=== PATIENT | male | born 1980 | race Caucasian/White ===

== ENCOUNTER → 2021-08-29 | Outpatient (CLI) | payer OTHER ==
--- NOTE | 2021-08-29 10:58 | XR ---
EXAMINATION TYPE: XR lumbar spine 2 or 3V DATE OF EXAM: 08/29/2021 COMPARISON: None HISTORY: Low back pain TECHNIQUE: 3 view lumbar spine FINDINGS: There are 5 lumbar-type vertebral bodies. Pedicles are intact. Mild side bending towards th e left is present. Disc heights are preserved. Vertebral body heights are preserved. IMPRESSION: 1. Normal three-view lumbar spine
== END | disposition home or self-care (01) ==
LOC: RADXRMAIN 10:02
PROVIDERS: ATTEND Family Medicine
DX: M54.50 Low back pain, unspecified (principal)
CPT/HCPCS: 72100

== ENCOUNTER → 2021-09-12 | Outpatient (CLI) | payer OTHER ==
--- NOTE | 2021-09-13 10:16 | CT ---
EXAMINATION TYPE: CT lumbar spine wo con DATE OF EXAM: 09/13/2021 10:04 AM COMPARISON: None HISTORY: lower back pain after lifting, pt says he heard a "pop" CT DLP: 900 mGycm Automated exposure control for dose reduction was used. Unenhanced CT of the lumbar spine was performed. Bone and soft tissue window settings are submitted as well as coronal and sagittal reconstructions. L1-L2: Normal disc space height. No disc herniation protrusion or central stenosis. No facet joint arthropathy. No evidence for foraminal encroachment. L2-L3: Normal disc space height. No disc herniation protrusion or central stenosis. No facet joint arthropathy. No evidence for foraminal encroachment. L3-L4: Normal disc space height. No disc herniation protrusion or central stenosis. No facet joint arthropathy. No evidence for foraminal encroachment. L4-L5: Normal disc space height. No disc herniation protrusion or central stenosis. No facet joint arthropathy. No evidence for foraminal encroachment. L5-S1: Normal disc space height. No disc herniation protrusion or central stenosis. No facet joint arthropathy. No evidence for foraminal encroachment. No fracture or malalignment. IMPRESSION: No distinct abnormality seen.
== END | disposition home or self-care (01) ==
LOC: RADCTMAIN 18:04
PROVIDERS: ATTEND Family Medicine
DX: M54.50 Low back pain, unspecified (principal)
CPT/HCPCS: 72131

== ENCOUNTER 2023-03-19 01:26 | Emergency (ER) | payer OTHER ==
[2023-03-19 01:52] VITALS: RESP 18; TEMP 97.4
[2023-03-19] MEDS ORDERED: MORPHINE SULFATE 4 MG/ML SYRINGE IM STA (02:04)
[2023-03-19] MEDS ORDERED: LIDOCAINE 1% INJ 10MG/ML (30 ML VIAL-PF) SQ ONE (02:05)
[2023-03-19] MEDS ORDERED: BACITRACIN OINT 1 EACH PACKET TOPICAL ONE (02:05)
--- NOTE | 2023-03-19 02:09 | ED ---
Fall HPI - General Chief Complaint: Fall Stated Complaint: FALL Time Seen by Provider: 03/19/23 01:55 Source: patient Mode of arrival: EMS - History of Present Illness Initial Comments: This is a 43-year-old male that presents to the emergency room after slipping in the bathtub hitting his head on the aluminum molding sustaing a large scalp laceration. Patient states he did not lose consciousness. Does not take any blood thinners. He also sustained a abrasion to his right index finger. Patient has a history of chronic back pain, headaches and irritable bowel syndrome. Does admit to smoking marijuana occasionally. Denies any alcohol use. Denies any narcotic drug use. MD Complaint: fall -: hour(s) (1) Fall From: standing When Fall Occurred: [address] Fall Witnessed: yes, by family Place Fall Occurred: home Loss of Consciousness: none Prolonged Down Time?: no Symptoms Prior to Fall: none Location: head (scalp) - Related Data Home Medications Medication Instructions Recorded Confirmed Gabapentin [Neurontin] 800 mg PO TID 02/24/23 Hydrocodone/Acetaminophen 1 tab PO Q8H 02/24/23 [Hydrocodone/Acetaminophen 7.5-325] Ibuprofen 600 mg PO BID 02/24/23 Allergies Allergy/AdvReac Type Severity Reaction Status Date / Time aspirin Allergy Unknown Swelling Verified 03/06/23 08:26 of fingers and toes Review of Systems ROS Statement: Those systems with pertinent positive or pertinent negative responses have been documented in the HPI. ROS Other: All systems not noted in ROS Statement are negative. Past Medical History Past Medical History: GERD/Reflux Additional Past Medical History / Comment(s): Cluster headaches, IBS, back pain. History of Any Multi-Drug Resistant Organisms: Unobtainable Past Surgical History: Cholecystectomy, Tonsillectomy Additional Past Surgical History / Comment(s): Tubes in ears, nasal surgeries for polyps and repair from kick boxing, metal tattos- unable to have MRI. Past Anesthesia/Blood Transfusion Reactions: Motion Sickness Additional Past Anesthesia/Blood Transfusion Reaction / Comment(s): States nausea with all medications. Past Psychological History: No Psychological Hx Reported Past Drug Use History: Marijuana Additional Drug Use History / Comment(s): Frequent Marijuana use. Aware no use 24 hrs prior to procedure. General Exam General appearance: alert, in no apparent distress Head exam: Present: other (Parietal scalp laceration, v shaped) Eye exam: Present: normal appearance, PERRL, EOMI. Absent: scleral icterus, conjunctival injection, periorbital swelling, periorbital tenderness Pupils: Present: normal accommodation ENT exam: Present: mucous membranes moist Neck exam: Present: full ROM. Absent: tenderness, meningismus Respiratory exam: Absent: respiratory distress, accessory muscle use Cardiovascular Exam: Present: regular rate Extremities exam: Present: normal capillary refill. Absent: pedal edema Neurological exam: Present: alert, oriented X3, CN II-XII intact Psychiatric exam: Present: normal affect, normal mood Skin exam: Present: warm, dry, normal color. Absent: cyanosis, diaphoretic, petechiae, pallor Course Vital Signs 03/19/23 03/19/23 01:41 02:38 Temperature 97.4 F L Pulse Rate 70 77 Respiratory 18 18 Rate Blood Pressure 125/65 O2 Sat by Pulse 98 98 Oximetry Procedures - Laceration Laceration #1 Indication: laceration Site: scalp Size (cm): 5 (5cm x 6cm v shaped) Description: irregular Depth: simple, single layer Anesthetic Used: lidocaine 1% Anesthesia Technique: local infiltration Pre-repair: irrigated extensively Type of Sutures: other (desiree) Number of Sutures: 12 (desiree) Patient Tolerated Procedure: well, no complications Medical Decision Making - Medical Decision Making Patient had a slip and fall hitting his head in the bathroom approximately an hour ago. He did sustain a large laceration to his parietal scalp. Wound was copiously irrigated with water and 100 mL of saline. 12 desiree placed to close the laceration measuring approximately 5 cm x 6 cm. Patient is complaining of stiffness of the neck and headache. Alpine C-spine rule shows low risk. Alpine CT head rule recommends consideration for CT for head trauma due to significant scalp laceration. Patient was offered CT of the brain and C-spine and declined. Patient was offered tetanus and declined. Patient has no focal neurological deficits. Vital signs are stable. Patient states he lives with his father. He was instructed to return to the emergency room with any new or concerning symptoms. Strict return parameters were discussed and he is agreeable to this plan of care. Patient states he does not have a primary care doctor so he'll return to the emergency room for staple removal. Case discussed with Dr. Trachy Was pt. sent in by a medical professional or institution ([employer] Son, ME[employer] COUNTER WORKER, urgent care, hospital, or longterm...) When possible be specific @ -No Did you speak to anyone other than the patient for history (EMS, parent, family, police, friend...)? What history was obtained from this source @ -No Did you review nursing and triage notes (agree or disagree)? Why? @ -I reviewed and agree with nursing and triage notes Were old charts reviewed (outside hosp., previous admission, EMS record, old EKG, old radiological studies, urgent care reports/EKG's, longterm records)? Report findings @ -No old charts were reviewed Differential Diagnosis (chest pain, altered mental status, abdominal pain women, abdominal pain men, vaginal bleeding, weakness, fever, dyspnea, syncope, headache, dizziness, GI bleed, back pain, seizure, CVA, palpatations, mental health, musculoskeletal)? @ -Scalp laceration, intracranial bleed, skull fracture, C-spine fracture, mild head trauma, concussion, this is not an all inclusive list EKG interpreted by me (3pts min.). @ -n/a X-rays interpreted by me (1pt min.). @ -None done CT interpreted by me (1pt min.). @ -None done U/S interpreted by me (1pt. min.). @ -None done What testing was considered but not performed or refused? (CT, X-rays, U/S, labs)? Why? @ -CT of the brain and C-spine was offered and patient declined What meds were considered but not given or refused? Why? @ -Tetanus shot was offered and patient declined. Toradol was considered however due to head trauma was withheld and morphine was given. Did you discuss the management of the patient with other professionals (professionals i.e. [employer] Son, MEAT COUNTER WORKER, lab, RT, psych nurse, social work job titles, cloud developer, teacher, gift officer, case aide)? Give summary @ -No Was smoking cessation discussed for >3mins.? @ -No Was critical care preformed (if so, how long)? @ -No Were there social determinants of health that impacted care today? How? (Homelessness, low income, unemployed, alcoholism, drug addiction, transportation, low edu. Level, literacy, decrease access to med. care, residential, rehab)? @ -No primary care doctor Was there de-escalation of care discussed even if they declined (Discuss DNR or withdrawal of care, Hospice)? DNR status @ -No What co-morbidities impacted this encounter? (DM, HTN, Smoking, COPD, CAD, Cancer, CVA, ARF, Chemo, Hep., AIDS, mental health diagnosis, sleep apnea, morbid obesity)? @ -none Was patient admitted / discharged? Hospital course, mention meds given and route, prescriptions, significant lab abnormalities, going to OR and other pertinent info. @ -Discharged Undiagnosed new problem with uncertain prognosis? @ -No Drug Therapy requiring intensive monitoring for toxicity (Heparin, Nitro, Insulin, Cardizem)? @ -No Were any procedures done? @ -Laceration repair Diagnosis/symptom? @ -Scalp laceration, fall, head trauma Acute, or Chronic, or Acute on Chronic? @ -Acute Uncomplicated (without systemic symptoms) or Complicated (systemic symptoms)? @ -Uncomplicated Side effects of treatment? @ -No Exacerbation, Progression, or Severe Exacerbation? @ -No Poses a threat to life or bodily function? How? (Chest pain, [place], [place], pneumonia, PE, COPD, DKA, ARF, appy, cholecystitis, CVA, Diverticulitis, Homicidal, Suicidal, threat to staff... and all critical care pts) @ -No Disposition Clinical Impression: Fall, Scalp laceration, Head trauma Disposition: HOME SELF-CARE Condition: Good Instructions (If sedation given, give patient instructions): Laceration (ED), Head Injury (ED), Staple Care (ED), Fall Prevention (ED) Additional Instructions: You were offered a CT scan of the brain and neck and declined. Please return to the emergency room with any new or concerning symptoms including persistent nausea vomiting, worsening headache or weakness. Keep wound clean and dry. Hyrum to be removed in 5-7 days. You can return to the emergency room for staple removal or follow-up with your primary care doctor. Tylenol and/or Motrin as needed for any pain or discomfort. Is patient prescribed a controlled substance at d/c from ED?: No Referrals: None,Stated [Primary Care Provider] - 1-2 days Time of Disposition: 02:53
[2023-03-19 02:39] VITALS: BP 125/65; PULSE 77
[2023-03-19] MEDS ORDERED: MORPHINE SULFATE 2 MG/ML SYRINGE IVP ONE (02:58)
[2023-03-19] MEDS ORDERED: ACET/COD 300 MG/30 MG STARTER PACK 6 TAB BTL PO STA (03:01)
== END 2023-03-19 03:52 | disposition home or self-care (01) ==
LOC: EC 01:26
DX: S01.01XA Laceration without foreign body of scalp, initial encounter (principal); F12.90 Cannabis use, unspecified, uncomplicated; Z88.6 Allergy status to analgesic agent; W01.198A Fall on same level from slipping, tripping and stumbling with subsequent striking against other object, initial encounter; Y92.009 Unspecified place in unspecified non-institutional (private) residence as the place of occurrence of the external cause
CPT/HCPCS: 99284; 96374; 96372; 12002; J2270 ×2; J2001

== ENCOUNTER → 2023-07-16 | Outpatient (CLI) | payer OTHER ==
--- NOTE | 2023-07-16 22:50 | XR ---
EXAMINATION TYPE: XR thoracic spine complete DATE OF EXAM: 07/16/2023 COMPARISON: None HISTORY: Degenerative disc disease TECHNIQUE: 2 view thoracic spine FINDINGS: Vertebral body heights are preserved. Disc heights are preserved. Alignment appears normal. There are 12 thoracic type vertebral bodies. Pedicles are intact. There is a scoliosis in the fronta l projection with convexity to the right. IMPRESSION: 1. No acute osseous abnormality thoracic spine. 2. Mild scoliosis upper thoracic spine
--- NOTE | 2023-07-16 22:51 | XR ---
EXAMINATION TYPE: XR lumbosacral spine min 4V DATE OF EXAM: 07/16/2023 COMPARISON: 08/29/2021 HISTORY: Back pain TECHNIQUE: 5V lumbar spine FINDINGS: There are 5 lumbar-type vertebral bodies. The pedicles are intact. Disc heights are preserv ed. Vertebral body heights are preserved. Alignment is normal. No spondylolytic defects are evident. IMPRESSION: 1. No acute osseous abnormality lumbar spine.
== END | disposition home or self-care (01) ==
LOC: RADXRMAIN 07:47
PROVIDERS: ATTEND Family Medicine
DX: M51.35 Other intervertebral disc degeneration, thoracolumbar region (principal); M41.84 Other forms of scoliosis, thoracic region
CPT/HCPCS: 72072; 72110